=== PATIENT | female | born 1975 | race Caucasian/White ===

== ENCOUNTER 2016-12-04 03:12 | Emergency (ER) | payer OTHER ==
[~2016-12-04] VITALS: Ht 149.9 cm; Wt 60.0 kg
[2016-12-04 03:16] VITALS: BP 137/75; PULSE 67; RESP 16; TEMP 97.9; O2SAT 100
[2016-12-04 03:23] VITALS: O2SAT 100
[2016-12-04] MEDS: RESP: ALBUTEROL 2.5 MG/IPRATROPIUM 0.5 MG NEB (SCH) INH ×2 (03:44→03:45)
[2016-12-04] MEDS ORDERED: methylPREDNISolone SOD SUCC 125 MG/2 ML VIAL IVP ONE (03:45)
[2016-12-04] MEDS ORDERED: SODIUM CHLORIDE 0.9% FLUSH 10 ML FLUSH IVF PRN (03:45)
[2016-12-04] MEDS ORDERED: ALBU.5I NEB (03:53)
--- NOTE | 2016-12-04 03:53 | PD ---
HPI Chief Complaint: Respiratory Symptoms Time Seen by Provider: 03:36 Travel History International Travel<30 days: No Contact w/Intl Traveler<30days: No Traveled to known affect area: No History of Present Illness HPI 41-year-old female arrives complaining of wheezing and shortness of breath for about 1 hour. It started at rest. She has a history of asthma. She has no inhaler available. She is visiting from out of town. No fever. Severity moderate. Timing constant. She rarely if ever experiences asthma exacerbations anymore however she states presentation is essentially the same as all prior episodes of asthma exacerbation. PFSH Past Medical History Asthma: Yes Tetanus Vaccination: < 5 Years Influenza Vaccination: Yes ?: Not LMP: 10/26/16 : 4 Para: 1 Miscarriage: 3 Past Surgical History Surgical History: No Previous Surgery Social History Alcohol Use: No Tobacco Use: No Substance Use: No Allergies-Medications (Allergen,Severity, Reaction): Coded Allergies: No Known Allergies (Unverified , 12/04/16) Reported Meds & Prescriptions Reported Meds & Active Scripts Active Albuterol Neb (Albuterol Sulfate) 2.5 Mg/0.5 Ml Neb 2.5 Mg NEB Q6HR NEB PRN Note: The Albuterol Sulfate Inhalation Solution is concentrated and must be diluted. Read complete instructions carefully before using. Review of Systems Except as stated in HPI: all other systems reviewed are Neg General / Constitutional: No: Fever, Chills Physical Exam Narrative GENERAL: 41-year-old female pleasant mild distress SKIN: Focused skin assessment warm/dry. HEAD: Atraumatic. Normocephalic. EYES: Pupils equal and round. No scleral icterus. No injection or drainage. ENT: No nasal bleeding or discharge. Mucous membranes pink and moist. NECK: Trachea midline. No JVD. CARDIOVASCULAR: Regular rate and rhythm. No murmur appreciated. RESPIRATORY: Tachypnea. Minimal wheezing bilateral. GASTROINTESTINAL: Abdomen soft, non-tender, nondistended. Hepatic and splenic margins not palpable. MUSCULOSKELETAL: No obvious deformities. No clubbing. No cyanosis. No edema. NEUROLOGICAL: Awake and alert. No obvious cranial nerve deficits. Motor grossly within normal limits. Normal speech. PSYCHIATRIC: Appropriate mood and affect; insight and judgment normal. Data Data Last Documented VS Vital Signs Date Time Temp Pulse Resp B/P Pulse Ox O2 Delivery O2 Flow Rate FiO2 12/04/16 04:42 98.4 88 18 135/65 98 Room Air 12/04/16 04:12 2 Orders Iv Access Insert/Monitor (12/04/16 03:36) Ecg Monitoring (12/04/16 03:36) Oximetry (12/04/16 03:36) Oxygen Administration (12/04/16 03:36) Sodium Chloride 0.9% Flush (Ns Flush) (12/04/16 03:45) Methylprednisolone So Succ Inj (Solumedr (12/04/16 03:45) Albuterol-Ipratropium Neb (Duoneb Neb) (12/04/16 03:45) Dexamethasone Inj (Decadron Inj) (12/04/16 04:00) Albuterol Hfa Inh (Proair Hfa Inh) (12/04/16 04:00) [facility] Medical Decision Making Medical Screen Exam Complete: Yes Emergency Medical Condition: Yes Medical Record Reviewed: Yes Differential Diagnosis Asthma, pneumonia, anxiety,NSTEMI, unstable angina, coronary vasospasm, PE, PTX , aortic dissection, pericarditis, myocarditis, endocarditis, PNA, esophageal disease, aneurysm, musculoskeletal etiologies, anxiety, cocaine/sympathomimetic abuse and chest pain differential Narrative Course Dunebs administered. Decadron administered. Albuterol inhaler. Patient ready for discharge. Diagnosis Primary Impression: Asthma attack Referrals: Primary Care Physician 2 days Additional Instructions: You have a choice when it comes to health care, and we are glad that you chose [facility]. Hopefully, we have met your expectations on today's visit. You are welcome to return to [facility] at any time, as we are committed to meeting the health care needs of our community. Med/Other Pt SpecificInfo: Prescription(s) given Scripts Albuterol Neb 2.5 Mg/0.5 Ml Neb2.5 Mg NEB Q6HR NEB PRN ([facility]) #28 BOX Note: The Albuterol Sulfate Inhalation Solution is concentrated and must be diluted. Read complete instructions carefully before using. Prov:Kranthi Sanchez MD 12/04/16 Disposition: 01 DISCHARGE HOME Condition: Stable Kranthi Sanchez MD Dec 04, 2016 03:53 Kranthi Sanchez MD Dec 04, 2016 03:53
[2016-12-04] MEDS ORDERED: ALBUTEROL SULFATE 90 MCG/ACT HFA 8 GM INHALER INH ONE (04:00)
[2016-12-04] MEDS ORDERED: DEXAMETHASONE SOD PHOS 4 MG/ML VIAL IM ONE (04:00)
[2016-12-04 04:12] VITALS: O2SAT 97
[2016-12-04 04:42] VITALS: BP 135/65; PULSE 88; RESP 18; TEMP 98.4; O2SAT 98
== END 2016-12-04 04:46 | disposition home or self-care (01) ==
LOC: NEPE 03:12
DX: J45.901 Unspecified asthma with (acute) exacerbation (principal)
CPT/HCPCS: 94640; 94664; 96372; 99283; J1100